=== PATIENT | female | born 1995 | race Caucasian/White ===

== ENCOUNTER 2024-05-25 21:48 | Emergency (ER) | payer OTHER ==
[2024-05-25 22:09] LABS: BASOPHILS ABSOLUTE AUTO 0.03 K/uL (0.00-0.20); BASOPHILS PERCENT AUTO 0.2 % (0.0-2.0); HEMOGLOBIN 13.4 g/dL (11.7-15.5); LYMPHOCYTES PERCENT AUTO 5.5 % (10.0-50.0); MEAN CORPUSCULAR HEMOGLOBIN 26.6 pg (28.2-33.3); MEAN CORPUSCULAR HGB CONC 33.5 g/dL (31.7-36.0); MEAN CORPUSCULAR VOLUME 79.4 fL (84.0-98.0); MONOCYTES ABSOLUTE AUTO 0.58 K/uL (0.00-1.00); MONOCYTES PERCENT AUTO 3.2 % (2.0-14.0); NEUTROPHILS ABSOLUTE AUTO 16.69 K/uL (1.40-7.00); NEUTROPHILS PERCENT AUTO 91.1 % (45.0-80.0); PLATELET COUNT,PLT 281 K/uL (150-350); RED BLOOD CELL COUNT 5.04 M/uL (3.77-5.09); RED CELL DISTRIBUTION WIDTH 14.7 % (11.2-14.1); WHITE BLOOD CELL COUNT,WBC 18.3 K/uL (4.0-10.2)
[2024-05-25 22:23] LABS: ALANINE AMINOTRANSFERASE,ALT 21 U/L (12-78); ALBUMIN 3.8 g/dL (3.4-5.0); ALKALINE PHOSPHATASE 68 IU/L (46-116); ANION GAP 12.3 meq/L (7-15); ASPARTATE AMNIOTRANSFERASE,AST 10 U/L (15-37); BILIRUBIN TOTAL 1.2 mg/dL (0.2-1.0); BLOOD UREA NITROGEN,BUN 12 mg/dL (7-18); CALCIUM 8.8 mg/dL (8.5-10.1); CARBON DIOXIDE,CO2 25.7 mmol/L (21.0-32.0); CHLORIDE,CL 103 mmol/L (98-107); CREATININE 0.83 mg/dL (0.51-1.17); GLUCOSE RANDOM 110 mg/dL (70-99); POTASSIUM,K 4.5 mmol/L (3.5-5.1); PROTEIN TOTAL,TP 7.3 g/dL (6.4-8.2); SODIUM,NA 141 mmol/L (136-145)
[2024-05-25 22:24] LABS: ESTIMATED GFR 98 mL/min (>=60)
[2024-05-25 22:25] LABS: APPEARANCE,URINE CLEAR; BILIRUBIN,URINE SMALL (NEGATIVE); COLOR,URINE YELLOW; GLUCOSE,URINE NEGATIVE (NEGATIVE); KETONES,URINE >=160 mg/dL (NEGATIVE); LEUKOCYTE ESTERASE,URINE NEGATIVE (NEGATIVE); NITRITE,URINE NEGATIVE (NEGATIVE); OCCULT BLOOD,URINE TRACE-INTACT (NEGATIVE); PROTEIN,URINE 30 mg/dL (NEGATIVE); UROBILINOGEN,URINE 0.2 E.U./dL (0.2-1.0)
[2024-05-25 22:28] LABS: BACTERIA,URINE FEW /HPF (NONE TO FEW); RBC,URINE 0-5 /HPF; WBC,URINE 0-5 /HPF
[2024-05-25] MEDS: Iopamidol 612 MG/ML 100 ML Bottle IVPUSH ONE (22:43)
[2024-05-25] MEDS: Ketorolac 30 MG/ML SDV IVPUSH ONE (23:09)
[2024-05-25] MEDS: Sodium Chloride 0.9% 1,000 ML IV ONE (23:09)
[2024-05-25] MEDS: Ondansetron 4 MG/2 ML SDV IVPUSH ONE (23:22)
[2024-05-25] MEDS ORDERED: Sodium Chloride 0.9% 10 ML Syringe FLUSH PRN (23:35)
[2024-05-25] MEDS: metroNIDAZOLE/Normal Saline 500 MG in Premix Bag 1 BAG IV ONE (23:56)
[2024-05-26] MEDS: Ondansetron 4 MG Tab.DIS PO ONE (00:05)
[2024-05-26] MEDS: cefTRIAXone 2 GM Vial IVPUSH ONE (00:05)
[2024-05-26] MEDS: Acetaminophen/HYDROcodone 325-5 MG Tab PO ONE (00:05)
== END 2024-05-26 00:41 | disposition home or self-care (01) ==
LOC: LL.ED 21:48 → MERGE 21:48 → LL.ED 05-26 00:41
DX: K35.30 Acute appendicitis with localized peritonitis, without perforation or gangrene (principal)
CPT/HCPCS: 36415; 74177; 80053; 81001; 81025; 83690; 85025; 96361; 96365; 96375; 99284-25; A9270-GY; J0696; J1836; J1885; J2405; J7030; Q9967